=== PATIENT | female | born 1940 | race Caucasian/White ===

== ENCOUNTER → 2017-12-30 07:36 | Outpatient (CLI) | payer MEDICARE, SELFPAY ==
--- NOTE | 2017-12-30 07:42 | CT_ITS ---
STUDY: CT PELVIS WITHOUT CONTRAST REASON FOR EXAM: Female, 77 years old. Right hip osteoarthritis RADIATION DOSAGE (If Supplied By Facility): CTDIvol = ( 12.06 ) mGy, DLP = ( 395.66 ) mGycm TECHNIQUE: Transaxial imaging of the pelvis was performed with oral contrast, and without intravenous administration of contrast material. Individualized dose optimization techniques were used for this CT. COMPARISON: 07/12/2016 FINDINGS: Normal urinary bladder. Possible gallbladder distention. This is incompletely imaged. Normal visualized small intestine. Normal visualized colon. There is no pelvic fluid. A stable partially calcified ovoid mass is present in the left lower quadrant medial to the colon, measuring 5.0 x 3.3 cm on image 21 of series 2. Normal visualized pelvic arteries. Normal abdominal wall. 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 Moderate left hip osteoarthritis. 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 Moderate left hip osteoarthritis. Stable calcified mass in the left lower quadrant. Possible distended gallbladder. Electronically Signed: Gildardo Nassar MD at 7:45 EDT Tel , Service support ,
--- NOTE | 2017-12-30 07:43 | CT_ITS ---
STUDY: CT PELVIS WITHOUT CONTRAST REASON FOR EXAM: Female, 77 years old. Right hip osteoarthritis RADIATION DOSAGE (If Supplied By Facility): CTDIvol = ( 12.06 ) mGy, DLP = ( 395.66 ) mGycm TECHNIQUE: Transaxial imaging of the pelvis was performed with oral contrast, and without intravenous administration of contrast material. Individualized dose optimization techniques were used for this CT. COMPARISON: 07/12/2016 FINDINGS: Normal urinary bladder. Possible gallbladder distention. This is incompletely imaged. Normal visualized small intestine. Normal visualized colon. There is no pelvic fluid. A stable partially calcified ovoid mass is present in the left lower quadrant medial to the colon, measuring 5.0 x 3.3 cm on image 21 of series 2. Normal visualized pelvic arteries. Normal abdominal wall. 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 Moderate left hip osteoarthritis. 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 Moderate left hip osteoarthritis. Stable calcified mass in the left lower quadrant. Possible distended gallbladder. Electronically Signed: Gildardo Nassar MD at 7:45 EDT Tel , Service support ,
== END ==
PROVIDERS: Family Provider Family Medicine; PCP Family Medicine; Visit Provider Specialist
DX: M16.11 Unilateral primary osteoarthritis, right hip (principal)
CPT/HCPCS: 72192; 76377

== ENCOUNTER → 2018-05-10 05:00 | Outpatient (REF) | payer MEDICARE, SELFPAY ==
[2018-05-10 09:05] LABS: Hematocrit 37.3 % (37-47); Hemoglobin 12.1 g/dl (12.0-15.0); Mean Corp Hgb Conc 32.4 g/gl (32-36); Mean Corpuscular Hgb 29.5 pg (27.0-32.0); Mean Platelet Vol. 8.9 fl (6.2-12.0); Platelet Count 159 K/mm3 (150-450); RBC Distribution Width CV 14.2 % (11.6-14.6); RBC Distribution Width SD 46.5 fl (35.1-43.9); White Blood Count 6.6 K/mm3 (4.4-11.0)
[2018-05-10 09:18] LABS: Scan Indicated on CBC? Y/N NO
[2018-05-10 09:39] LABS: Anion Gap 6 (5-15); BUN 10 mg/dL (7-18); BUN/Creat Ratio 15.3 RATIO (10-20); Calcium,Total 9.2 mg/dL (8.5-10.1); Chloride 94 mmol/L (98-107); Cholesterol 172 mg/dL (200); Creatinine, Serum 0.65 mg/dL (0.55-1.02); EST Glomerular Filtration Rate 94 mL/min (>60); Est Glom Filt Rate - Afr Amer 114 mL/min (>60); Glucose 72 mg/dL (74-106); High Density Lipoprotein 57 mg/dL; Potassium 3.9 mmol/L (3.5-5.1); Sodium Level 129 mmol/L (136-145); Triglycerides 119 mg/dL; Very Low Density Lipoprotein 24 mg/dL (5-40)
== END ==
LOC: OLS.AVED 05:00
PROVIDERS: Visit Provider Family Medicine
DX: I10 Essential (primary) hypertension (principal); E78.5 Hyperlipidemia, unspecified; I25.10 Atherosclerotic heart disease of native coronary artery without angina pectoris
CPT/HCPCS: 36415; 80048; 80061; 85027

== ENCOUNTER 2018-05-19 07:00 | Emergency (ER) | payer MEDICARE, SELFPAY ==
[2018-05-19 07:01] VITALS: BP 125/71; PULSE 83; RESP 14; TEMP 37; O2SAT 97; BMI 16.4
--- NOTE | 2018-05-19 07:16 | RAD_ITS ---
STUDY: X-RAY - LEFT SHOULDER REASON FOR EXAM: Female, 78 years old. Entire left shoulder pain. TECHNIQUE: 4 view(s) of the shoulder. COMPARISON: No prior left shoulder imaging available. Correlation chest AP upright view 12/31/2016. FINDINGS: Complete oblique fractures noted of the left distal clavicle with elevation of the proximal portion and displacement superior impression when shaft width noted. Mild angulation is also seen apex superior and left distal clavicular fracture. Separate bony fragment measures approximately 1.7 x 2.2 cm with the distal clavicular articular margin approximate 0.68 cm and the acromioclavicular joints appears intact as does the glenohumeral joint. However, mild diffuse increased soft tissue density seen superior to the fracture site indicating soft tissues 1/hematoma. Nonacute humeral head and visualized proximal humerus. Visualized ribs and adjacent lung appear intact without large gross pneumothorax identified. Generalized osteopenia suggested. RAD/Shoulder min 2 Views IMPRESSION: Left distal clavicular acute fracture as described with displacement and angulation. No obvious dislocation identified. Generalized osteopenia. Electronically Signed: Harsha Ramírez, at 8:35 EDT Tel , Service support ,
--- NOTE | 2018-05-19 07:16 | RAD_ITS ---
STUDY: X-RAY CHEST REASON FOR EXAM: Female, 78 years old. Complete left shoulder pain after fall today. Left side pain. TECHNIQUE: 2 views, PA and lateral projections. COMPARISON: Chest 12/31/2016. FINDINGS: The lungs appear hyperexpanded and demonstrate other findings suggesting COPD with biapical hyperexpansion/hyperlucency changes. Mild suboptimal inspiration is also suggested with mild elevation right diaphragm. Hiatal hernia noted, approximate 7.8 cm transverse with small air-fluid level noted. Heart size appears mildly enlarged for AP and lateral projections. Moderate aortic knob calcifications. Trachea is right midline due to rotation which accentuates heart size. Heterogeneous opacity seen in the right lung base medially extending into the right infrahilar region, may represent atelectasis/scarring, pneumonia or lower probability pleural fluid. With lateral view, same heterogeneous area appears anterior suggesting right middle lobe involvement. Stable appearing mediastinum and left hilum. Mildly enlarged visualized pulmonary arteries suggested. Stable appearing heavily calcified visualized aortic knob. Complete oblique fracture is noted of the left distal clavicle with elevation of the proximal portion and displacement superior portion approximate 1 shaft width noted. Mild angulation is also seen apex superior and left distal clavicular fracture. Separate bony fragment is a proximal 1.7 x 2.2 cm with the distal clavicular articular margin approximate 0.68 cm from the adjacent acromion. Acromioclavicular joint appears intact as does the glenohumeral joint. However, mild diffuse increased soft tissue density is seen superior to the fracture site indicating deltoid musculature/soft tissue swelling/hematoma. Generalized osteopenia suggested. There is no demonstrated abnormality of the visualized soft tissue structures of the upper abdomen. No subdiaphragmatic free air seen grossly. RAD/Chest PA and Lateral IMPRESSION: Right lung base medial and right infrahilar heterogeneous opacity, may represent atelectasis/scarring, pneumonia or lower probability pleural fluid. Clinical correlation recommended. Left distal clavicular acute fracture as described with displacement and angulation. Moderate hiatal hernia with air-fluid level placing patient at risk for aspiration. Clinical correlation recommended. Generalized osteopenia. Electronically Signed: Harsha Ramírez, at 9:07 EDT Tel , Service support ,
--- NOTE | 2018-05-19 07:16 | CT_ITS ---
STUDY: CT BRAIN WITHOUT CONTRAST REASON FOR EXAM: Female, 78 years old. FALL RADIATION DOSAGE (If Supplied By Facility): CTDIvol = ( 44.99 ) mGy, DLP = ( 745.99 ) mGycm TECHNIQUE: Transaxial CT imaging of the brain was performed without administration of intravenous contrast material. Individualized dose optimization techniques were used for this CT. COMPARISON: None. FINDINGS: There is cerebral atrophy with widening of the extra-axial spaces and ventricular dilatation. There are areas of decreased attenuation within the white matter tracts of the supratentorial brain, consistent with microvascular disease changes. There is no intracranial hemorrhage. There are no findings of an acute ischemic infarction. Normal soft tissue structures. There is left maxillary sinus disease CT/Brain/Head without Contrast IMPRESSION: Chronic involutional changes of the brain. Electronically Signed: David Monsalve MD at 8:10 EDT Tel , Service support ,
[2018-05-19] MEDS: morphine 10 MG/ML Syringe 2 MG SC (07:28)
--- NOTE | 2018-05-19 09:14 | ED.VISSUMM ---
- ER Visit Summary Date of Service: 05/19/18 Chief Complaint: Fall History of Present Illness: The patient is a 78 F who presents from her nursing facility with a fall this morning. The patient landed on her left side. She did not hit her head or neck. She did not complain of head or neck pain. She did not lose consciousness. She does take Eliquis and aspirin. Her pain is over her left shoulder and wraps around to her left upper back. Denies abdominal pain. Denies hip or leg pain. Denies right upper extremity pain. Denies weakness or numbness. Denies vision changes. Denies speech changes or facial droop. Denies trouble with balance. Denies nausea or vomiting. Physical Examination: Afebrile and vital signs unremarkable. Head and neck are grossly atraumatic. Neck is nontender. Heart is regular. Lungs are clear. Left shoulder is tender to palpation diffusely and about the distal clavicle. Left scapular region is slightly tender to palpation. Overlying skin appears normal. She is neurovascularly intact distally. Right upper extremity atraumatic. Abdomen soft and nontender. The remainder of her back is nontender. Hips and legs unremarkable. No focal or lateralizing weakness or numbness. Cranial nerves grossly intact. Test Results: X-rays of the left shoulder showed a distal clavicle fracture with angulation. She also has incidental findings on her chest x-ray including hiatal hernia and a right lung opacity. This is nonspecific. Clinically she has no respiratory symptoms. No infectious symptoms. She can follow-up with her doctor. Head CT was negative. Emergency Department Course and Treatment: Patient treated with morphine while awaiting results. She was placed in a sling. There is no indication for operative management at this point. She has seen Dr. Garcia before and will be referred to him. I did check her prescription report. She has been on oxycodone in the past. Will prescribe a short course of Percocet. Patient will be discharged back to her nursing facility. She should also follow-up with her primary care doctor for recheck. Return for any new or worsening issues. Treatment Plan: As above Disposition: Discharged Impression: 1. Left distal clavicle fracture This note was generated with [employer] dictation software. It may contain incorrect words, spelling, and punctuation that were not noted in review of the chart prior to signing ED Disposition - Plan for ED Patient: Chief Complaint: Fall Referrals: Agueda Colón DO [Primary Care Provider] -
--- NOTE | 2018-05-19 09:20 | ED.DEP ---
ED Disposition - Plan for ED Patient: Chief Complaint: Fall Instructions: ED Fx Clavicle Prescriptions: Oxycodone [Oxyir] 5 mg PO Q6H PRN PRN 3 Days #12 tab PRN Reason: Pain Oxycodone HCl/Acetaminophen [Percocet 5/325] 1 tablet PO Q6H PRN PRN 3 Days #12 tablet PRN Reason: Pain Referrals: Agueda Colón DO [Primary Care Provider] -
[2018-05-19 09:40] VITALS: BP 122/69; PULSE 79; RESP 12; O2SAT 93
[2018-05-19 09:41] VITALS: BP 122/69; PULSE 74; RESP 12; O2SAT 93
== END 2018-05-19 11:22 | disposition home or self-care (01) ==
PROVIDERS: Emergency Provider Emergency Medicine; Family Provider Family Medicine; PCP Family Medicine
DX: S42.032A Displaced fracture of lateral end of left clavicle, initial encounter for closed fracture (principal); I25.10 Atherosclerotic heart disease of native coronary artery without angina pectoris; I48.91 Unspecified atrial fibrillation; I10 Essential (primary) hypertension; Z86.2 Personal history of diseases of the blood and blood-forming organs and certain disorders involving the immune mechanism; Z79.01 Long term (current) use of anticoagulants; Z79.82 Long term (current) use of aspirin; Z79.891 Long term (current) use of opiate analgesic; Z79.899 Other long term (current) drug therapy
CPT/HCPCS: 70450; 71046; 73030; 96372; 99284

== ENCOUNTER → 2018-05-22 06:00 | Outpatient (REF) | payer MEDICARE, SELFPAY ==
[2018-05-22 10:24] LABS: Vitamin D,25 Hydroxy 73.9 ng/mL (29.95-100.01)
== END ==
LOC: OLS.AVEB 06:00
PROVIDERS: Visit Provider Family Medicine
DX: E55.9 Vitamin D deficiency, unspecified (principal)
CPT/HCPCS: 36415; 82306

== ENCOUNTER → 2018-06-01 08:20 | Outpatient (REF) | payer MEDICARE, SELFPAY ==
[2018-06-01 09:37] LABS: Prealbumin 7.1 mg/dL (20.0-40.0)
[2018-06-02 09:07] LABS: Vitamin D,25 Hydroxy 70.3 ng/mL (29.95-100.01)
== END ==
LOC: OLS.AVED 08:20
PROVIDERS: Visit Provider Family Medicine
DX: R63.4 Abnormal weight loss (principal); F25.9 Schizoaffective disorder, unspecified
CPT/HCPCS: 36415; 82306; 84134; 84443

== ENCOUNTER → 2018-06-05 04:00 | Outpatient (REF) | payer MEDICARE, SELFPAY ==
[2018-06-05 08:15] LABS: Hematocrit 30.3 % (37-47); Hemoglobin 9.8 g/dl (12.0-15.0); Mean Corp Hgb Conc 32.3 g/gl (32-36); Mean Corpuscular Hgb 30.2 pg (27.0-32.0); Mean Corpuscular Volume 93.2 fL (81-99); Mean Platelet Vol. 8.7 fl (6.2-12.0); Platelet Count 217 K/mm3 (150-450); RBC Distribution Width SD 49.3 fl (35.1-43.9); Red Blood Count 3.25 M/mm3 (4.2-5.4); White Blood Count 6.5 K/mm3 (4.4-11.0)
[2018-06-05 08:18] LABS: Scan Indicated on CBC? Y/N NO
[2018-06-05 08:23] LABS: Anion Gap 10 (5-15); BUN 11 mg/dL (7-18); BUN/Creat Ratio 14.6 RATIO (10-20); Calcium,Total 8.6 mg/dL (8.5-10.1); Chloride 100 mmol/L (98-107); Creatinine, Serum 0.75 mg/dL (0.55-1.02); EST Glomerular Filtration Rate 79 mL/min (>60); Est Glom Filt Rate - Afr Amer 96 mL/min (>60); Glucose 85 mg/dL (74-106); Potassium 4.5 mmol/L (3.5-5.1); Sodium Level 136 mmol/L (136-145)
== END ==
LOC: OLS.AVED 04:00
PROVIDERS: Visit Provider Family Medicine
DX: D64.9 Anemia, unspecified (principal)
CPT/HCPCS: 36415; 80048; 85027

== ENCOUNTER 2018-06-30 16:35 | Emergency (ER) | payer MEDICARE, SELFPAY ==
[2018-06-30 16:37] VITALS: BP 107/75; PULSE 61; RESP 14; TEMP 36.6; O2SAT 98; BMI 19.1
--- NOTE | 2018-06-30 17:16 | EKG12_ITS ---
Test Reason : DYSRHYTHMIA Blood Pressure : / mmHG Vent. Rate : 096 BPM Atrial Rate : 096 BPM P-R Int : 162 ms QRS Dur : 122 ms QT Int : 410 ms P-R-T Axes : 071 -22 -89 degrees QTc Int : 517 ms Sinus rhythm with Premature atrial complexes Right bundle branch block Left ventricular hypertrophy Abnormal ECG Confirmed by JIA CULP, DIMA ([id number]), rewrite editor NEREIDA DALEY ([id number] on 07/07/2018 1:29:01 PM Referred By: FILOMENA Confirmed By:DIMA RO MD
--- NOTE | 2018-06-30 17:21 | ED.VISSUMM ---
- ER Visit Summary Date of Service: 06/30/18 Chief Complaint: Weakness History of Present Illness: The patient is a 78 F sent in from [facility] for failure to thrive and not eating over the past couple days. Patient has no complaints and does not know why she is here. She does admit that she has not been eating well and states she really just has no appetite. Per records patient's history is significant for dementia, coronary disease, hypertension, sick sinus syndrome, hyponatremia, paroxysmal A. fib, chronic hip pain. Physical Examination: Vital signs are unremarkable. Patient is frail and cachectic appearing. Head neck examination is grossly unremarkable. Heart is regular rate and rhythm. Lung sounds are clear. Abdomen is soft nontender. Back examination with a 3 cm diameter sacral pressure ulcer with packing in place. There is minimal surrounding erythema. Patient is alert and oriented. She is moving all 4 extremities. Test Results: EKG is sinus at 96 with PACs and a right bundle branch block. No acute ischemia. CBC reveals a white count 26.6 with 92% neutrophils. Hemoglobin is 10.5. Chemistry studies significant for slightly low potassium at 3.2. Urinalysis shows 50 ketones but no infection. Aerobic and anaerobic cultures were sent from the sacral ulcer. Emergency Department Course and Treatment: Patient was ordered Zosyn and vancomycin. I spoke with the hospitalist. When she spoke to the patient's son he states the patient is a DNR comfort care and after discussing treatment options they are electing for hospice care if possible. I spoke with the hospice nurse and they are evaluating the patient in the emergency room. They have accepted the patient and patient will be discharged to the hospice center. Treatment Plan: [] Disposition: Discharge Impression: 1. Infected sacral decubitus ulcer 2. DNR Comfort Care This note was generated with [employer] dictation software. It may contain incorrect words, spelling, and punctuation that were not noted in review of the chart prior to signing ED Disposition - Plan for ED Patient: Chief Complaint: Weakness Referrals: Agueda Colón DO [Primary Care Provider] -
[2018-06-30] MEDS: 0.9% Normal Saline 1,000 ML 50 ML IV (18:13)
[2018-06-30 18:26] LABS: Absolute Lymphocyte Count 0.96 X10^3/ul (0.83-4.51); Absolute Neutrophil Count 24.5 X10^3/uL (2.0-7.7); Basophil# 0.01 X10^3/uL; Hematocrit 32.5 % (37-47); Hemoglobin 10.5 g/dl (12.0-15.0); Lymphocyte # 0.96 X10^3/ul (4.0); Lymphocyte % 3.6 % (19-41); Mean Corp Hgb Conc 32.3 g/gl (32-36); Mean Corpuscular Volume 89.8 fL (81-99); Mean Platelet Vol. 8.2 fl (6.2-12.0); Monocyte# 0.94 X10^3/uL; Monocyte% 3.5 % (0-10); Neutrophil # 24.54 X10^3/uL (2.7-7.7); Neutrophil % 92.5 % (47-70); Platelet Count 265 K/mm3 (150-450); Red Blood Count 3.62 M/mm3 (4.2-5.4); White Blood Count 26.6 K/mm3 (4.4-11.0)
[2018-06-30 18:33] LABS: Differential Indicated SCAN CRITERIA MET; POSITIVE COUNT NO; POSITIVE DIFFERENTIAL YES; POSITIVE MORPHOLOGY NO
[2018-06-30 18:34] LABS: Anion Gap 9 (5-15); BUN 24 mg/dL (7-18); BUN/Creat Ratio 39.9 RATIO (10-20); Calcium,Total 9.2 mg/dL (8.5-10.1); Chloride 100 mmol/L (98-107); EST Glomerular Filtration Rate 103 mL/min (>60); Est Glom Filt Rate - Afr Amer 124 mL/min (>60); Estimated Creatinine Clearance 33.59 ml/min; Glucose 106 mg/dL (74-106); Potassium 3.2 mmol/L (3.5-5.1); Sodium Level 138 mmol/L (136-145)
[2018-06-30 18:52] LABS: Bacteria 0 SEEN /hpf (None Seen); Squamous Epithelial Cells - UA 0 SEEN /hpf (5-10)
[2018-06-30 18:52] LABS: Differential Comment SCANNED
[2018-06-30 18:56] LABS: Color, Urine Yellow (Yellow); Glucose, Dipstick Normal (Normal); Ketone-Dipstick 50 mg/dl (Negative); Leukocyte Esterase-Dipstick Negative /ul (Negative); Nitrite-Dipstick Negative (Negative); Occult Blood-Urine Negative /ul (Negative); Protein-Dipstick 15 mg/dl (Negative); Urine Clarity Clear (Clear); Urine Urobilinogen 1 mg/dl (Normal)
[2018-06-30 19:03] LABS: Urine Bilirubin Dipstick 1 mg/dL (Negative)
[2018-06-30 19:04] LABS: Mucous, Urine 1+ /hpf (<or=2+)
[2018-06-30 19:05] LABS: Hyaline Cast 0-5 SEEN /lpf (0-5)
[2018-06-30 19:06] LABS: White Blood Cells 0-5 SEEN /hpf (0-5)
[2018-06-30 19:08] LABS: Transitional Epithelial - Ur 0-5 SEEN /hpf (0-5)
[2018-06-30 19:11] LABS: Red Blood Cells-Urine 0-5 SEEN /hpf (0-5)
[2018-06-30] MEDS: Piperacil/Tazobactam 3.375 GM/50 ML ML IV (19:30)
--- NOTE | 2018-06-30 20:53 | PCM.CONS.GEN ---
Problem List (1) Decubitus ulcer of coccygeal region, stage 4 Status: Acute (2) Protein-calorie malnutrition, severe Status: Chronic (3) Depression Status: Chronic Qualifiers: Depression Type: unspecified Qualified Code(s): F32.9 - Major depressive disorder, single episode, unspecified (4) Generalized anxiety disorder Status: Chronic (5) Osteoarthritis of hip Status: Chronic Qualifiers: Osteoarthritis type: unspecified Laterality: unspecified laterality Qualified Code(s): M16.9 - Osteoarthritis of hip, unspecified (6) Paroxysmal atrial fibrillation Status: Chronic (7) CAD (coronary artery disease) Status: Chronic Qualifiers: Coronary Disease-Associated Artery/Lesion type: unspecified vessel or lesion type [place] vs. transplanted heart: unspecified whether [place] or transplanted heart Associated angina: angina presence unspecified Qualified Code(s): I25.10 - Atherosclerotic heart disease of [place] coronary artery without angina pectoris (8) HTN (hypertension) Status: Chronic Qualifiers: Hypertension type: essential hypertension Qualified Code(s): I10 - Essential (primary) hypertension (9) Hyponatremia Status: Chronic Comment: due to excessive water intake (10) Sick sinus syndrome Status: Chronic (11) Hyperlipidemia Status: Chronic (12) Mitral valve disease Status: Chronic (13) Tricuspid valve disease Status: Chronic (14) Migraine Status: Chronic Qualifiers: Migraine type: unspecified Status migrainosus presence: without status migrainosus Intractability: not intractable Qualified Code(s): G43.909 - Migraine, unspecified, not intractable, without status migrainosus Reason for Consult Date of Consultation: 06/30/18 Reason for Consultation: Failure to thrive, suspected infected coccxy decubitous ulcer, poor intake. History of Present Illness: The patient is a 78 y/o F w/ PMHx: PUD, Dementia Unclear Type with no behavioral disturbance history, Severe Protein-Calorie Malnutrition, PAF on Eliquis, Hx Sick Sinus Syndrome, HTN, HLD, Chronic Hyponatremia, Valvular Heart Disease, Anxiety and Depression, Chronic Fe deficiency anemia, CAD without PCI from records review who presents to the [facility] ED on 06/30/18 with history of poor intake, failure to thrive per facility worsening over the last 48-72 hours w/ concurrently noted ongoing wound care for coccyx decubitous ulcer which family reported facility noting had been improving and well appearing prior but upon current presentation is foul smelling w/ obvious muscle necrosis upon evaluation with concern for > stage IV. In the ED work-up included T 97.9, heart rate 61, BP 107/75, respiratory rate 14, 98% on room air, CBC with WBC 26.6, hemoglobin 10.5, platelet 265 with left shift, BMP with potassium 3.2, BUN/creatinine 24/0.60, urinalysis with evidence dehydration with specific gravity 1.020 otherwise no evidence of acute infection, EKG with no acute evidence of ischemia. In the ED patient administered Zosyn in addition to normal saline with planned administration of vancomycin however following discussion with family, son who is healthcare power of senior portfolio manager noting DNR CC with comfort only with request for evaluation per hospice services this antibiotic was held. Past Medical History Past Medical History (Chronic Problems): Chronic Problems Protein-calorie malnutrition, severe (Chronic) Anemia due to unknown mechanism (Chronic) Depression (Chronic) Generalized anxiety disorder (Chronic) Osteoarthritis of hip (Chronic) Paroxysmal atrial fibrillation (Chronic) CAD (coronary artery disease) (Chronic) Fatty infiltration of liver (Chronic) HTN (hypertension) (Chronic) Villous adenoma of colon (Chronic) Presbyesophagus (Chronic) Hyponatremia (Chronic) due to excessive water intake Sick sinus syndrome (Chronic) Hyperlipidemia (Chronic) Mitral valve disease (Chronic) Tricuspid valve disease (Chronic) Osteoarthritis of right hip (Chronic) Migraine (Chronic) Allergies moxifloxacin HCl [From Avelox] Allergy (Verified 06/30/18 16:37) Hives acetaminophen [From Percocet] Adverse Reaction (Verified 06/30/18 16:37) Vomiting hydrocodone bitartrate [From Vicodin] Adverse Reaction (Verified 06/30/18 16:37) Vomiting hydromorphone HCl [From Dilaudid] Adverse Reaction (Verified 06/30/18 16:37) Vomiting Steriods Adverse Reaction (Uncoded 06/30/18 16:37) Diarrhea Home Medications: Ambulatory Orders Medication Instructions Recorded Omeprazole [Prilosec] 20 mg PO BID #60 capsule 04/30/16 Amlodipine [Norvasc] 10 mg PO DAILY tablet 05/04/17 Aspirin [Aspirin, Baby] 81 mg PO DAILY@0800 tab.chew 05/04/17 Losartan Potassium [Cozaar] 100 mg PO DAILY tablet 05/04/17 Acetaminophen [Feverall] 650 mg RC Q4H PRN PRN 05/19/18 Acetaminophen [Tylenol] 650 mg PO Q4H PRN PRN 05/19/18 Apixaban [Eliquis] 2.5 mg PO DAILY 05/19/18 Atorvastatin Calcium [Lipitor] 20 mg PO QHS 05/19/18 Bisacodyl [Bisac-Evac] 10 mg RC DAILY PRN PRN 05/19/18 Calcium Carbonate [Tums] 1 - 2 tab PO Q4H PRN PRN 05/19/18 Ergocalciferol (Vitamin D2) 2,000 unit PO DAILY 05/19/18 [Ergocal] Guaifenesin [Mucinex] 600 mg PO BID PRN PRN 05/19/18 Guaifenesin [Robitussin] 10 ml PO Q4H PRN PRN 05/19/18 Loperamide HCl [Loperamide] 30 ml PO DAILY PRN PRN 05/19/18 Mag Hydrox/Al Hydrox/Simeth 30 ml PO Q4H PRN PRN 05/19/18 [Antacid Suspension] Magnesium Hydroxide [Milk Of 30 ml PO DAILY PRN PRN 05/19/18 Magnesia] Mirtazapine [Remeron] 7.5 mg PO QHS 05/19/18 Multivitamin [Multiple Vitamins] 1 each PO DAILY 05/19/18 Na Phos,M-B/Na Phos,Di-Ba [Fleet 1 bottle RECTAL DAILY PRN PRN 05/19/18 Enema] Oxycodone [Oxyir] 5 mg PO BID 05/19/18 Oxycodone [Oxyir] 5 mg PO Q6H PRN PRN 05/19/18 Quetiapine Fumarate [Seroquel] 50 mg PO BID 05/19/18 Cetirizine HCl [Zyrtec] 10 mg PO DAILY 06/30/18 Sotalol HCl [Betapace (Beta 120 mg PO BID 06/30/18 Luis Enrique)] Surgical History: tonsillectomy, - - Cardiac catheterization without PCI, Several Endoscopies, Abdominal mass resection. Psychiatric History: Anxiety, Depression CIGARETTE PACKER History: No pertinent CIGARETTE PACKER history Lives: Skilled Nursing Smoking Status: Never smoker Tobacco Use: Non-smoker Alcohol: None Drugs: None - *Family History Sibling History Items: Cancer - breath cancer. Maternal History Items: Cancer - cervical cancer, Hypertension Paternal History Items: No pertinent history Review of Systems Constitutional: Reports: Anorexia, Malaise, Weakness, Fatigue. Denies: Chills, Fever, Weight Change HEENT: Denies: Head Aches, Sinus Congestion, Sinus Drainage Cardiovascular: Denies: Chest Pain, Palpitations Respiratory: Denies: Cough, Shortness of breath at rest, Sputum production Gastrointestinal: Denies: Abdominal Pain, Nausea, Vomiting Genitourinary: Denies: Dysuria Musculoskeletal: Reports: Back Pain, Joint stiffness. Denies: Joint Pain, Joint Tenderness Skin: Reports: Skin Changes, Wounds. Denies: Rash Neurological: Reports: Confusion. Denies: Focal weakness, Numbness, Tingling Psychiatric: Reports: Anxiety, Depression. Denies: Homicidal Ideations, Suicidal Ideations Hematologic/ Lymphatic: Reports: Anemia, Easy Bruising, Easy Bleeding Patient Problems: Active and Suspected Problems Decubitus ulcer of coccygeal region, stage 4 (Acute) Subjective: Laying in the ED bed, fatigued appearance, currently she denies any acute complaints, notes recent poor intake but cannot tell why. She denies any coccyx pain or discomfort but moans upon turning. Objective: Physical Examination: General: awake, alert, oriented to self and some recent events but baseline chronic dementia evidence, cooperative, laying in the ED bed in no apparent distress. Skin: normal color, turgor, no icterus, cyanosis except occasional extremity various staged ecchymoses in addition to posterior coccyx greater than stage IV coccyx decubitus ulcer, infected appearing, foul-smelling, necrotic tissue and muscle evident. HEENT: AT/NC, EOMI, PERRLA, dry MM, no carotid bruits or JVD noted. Lungs: Diminished BS BL, > bases, poor effort, performed on her side, no rales, ronchi or wheezing. Heart: Regular rate and rhythm; no gallop, rub audible. Abdomen: soft, extremely cachectic, NTTP, ND, mildly hypoactive BS, no HSM. Extremities: no cyanosis, clubbing, see skin. Neurological: patient awake, alert, oriented as noted; cognitive function decreased baseline w/ dementia, appears baseline intact; pupils equally reactive to light and accomodation; cranial nerves II-XII grossly normal, moving all 4 extremities, no focal deficits, strength severely globally decreased. Psychiatric: affect appears flat, fatigued, no acute evidence of depressive or anxiety feelings. - Physical Exam Vital Signs Temp Pulse Resp BP Pulse Ox 97.9 F 61 14 107/75 98 06/30/18 16:37 06/30/18 16:37 06/30/18 16:37 06/30/18 16:37 06/30/18 16:37 Oxygen Delivery Method Room Air Weight: 98 lb Body Mass Index (BMI) 19.1 Finger Stick Blood Glucose 76 Laboratory Tests Past 24 Hrs 06/30/18 06/30/18 06/30/18 18:05 18:05 18:45 WBC 26.6 H RBC 3.62 L Hgb 10.5 L Hct 32.5 L MCV 89.8 MCH 29.0 MCHC 32.3 RDW 15.0 H RDW Differential 49.0 H Plt Count 265 MPV 8.2 Immature Gran % (Auto) 0.400 Neut % (Auto) 92.5 H Lymph % (Auto) 3.6 L [place] % (Auto) 3.5 Eos % (Auto) 0.0 Baso % (Auto) 0.0 Absolute Neuts (auto) 24.5 H Absolute Lymphs (auto) 0.96 Total Counted Not Reportable Differential Comment SCANNED Sodium 138 Potassium 3.2 L Chloride 100 Carbon Dioxide 29.0 Anion Gap 9 BUN 24 H Creatinine 0.60 Estim Creat Clear Calc 33.59 Est GFR (MDRD) Af Amer 124 Est GFR (MDRD) Non-Af 103 BUN/Creatinine Ratio 39.9 H Glucose 106 Calcium 9.2 Urine Color Yellow Urine Clarity Clear Urine pH 6.0 Ur Specific [place] 1.020 Urine Protein 15 H Urine Glucose (UA) Normal Urine Ketones 50 H Urine Occult Blood Negative Urine Nitrite Negative Urine Bilirubin 1 H Urine Urobilinogen 1 H Ur Leukocyte Esterase Negative Urine RBC 0-5 SEEN Urine WBC 0-5 SEEN Ur Squamous Epith Cells 0 SEEN Ur Transition Epith Cell 0-5 SEEN Urine Bacteria 0 SEEN Hyaline Casts 0-5 SEEN Urine Mucus 1+ Assessment/Plan All Active Problems Decubitus ulcer of coccygeal region, stage 4 (Acute) Altered mental status (Acute) UTI (urinary tract infection) (Acute) Abdominal pain (Acute) Abnormal LFTs (Resolved) Hypertensive emergency without congestive heart failure (Resolved) Peptic ulcer with hemorrhage (Resolved) Sinus pause (Resolved) The patient is a 78 y/o F w/ PMHx: PUD, Dementia Unclear Type with no behavioral disturbance history, Severe Protein-Calorie Malnutrition, PAF on Eliquis, Hx Sick Sinus Syndrome, HTN, HLD, Chronic Hyponatremia, Valvular Heart Disease, Anxiety and Depression, Chronic Fe deficiency anemia, CAD without PCI from records review who presents to the [facility] ED on 06/30/18 with history of poor intake, failure to thrive per facility worsening over the last 48-72 hours w/ concurrently noted ongoing wound care for coccyx decubitous ulcer which family reported facility noting had been improving and well appearing prior but upon current presentation is foul smelling w/ obvious muscle necrosis upon evaluation with concern for > stage IV. (1) Hospice: Patient verified per HCPOA Son present to be DNR-CC. Reviewed patient code status and differences at length between DNR-CCA and DNR-CC. Requested continued DNR-CC. Discussed different options including evaluation per Hospice team in ED for possible transition to facility which he noted preferring. Will be evaluated in the ED and if felt appropriate transition to Hospice facility. Otherwise, would admit to [facility] for hospice treatment, MS, institute hospice comfort measures w/ VS limited q 12, sanderson placement if preference to patient and care, mouth care, regular diet or patient preference, oxygen as needed, PRN and scheduled SL morphine, scheduled lorazepam, haldol PRN IV, tylenol PRN. (2) Infected Decubitous Coccyx Ulcer, Suspect > Stage IV: In the ED work-up included T 97.9, heart rate 61, BP 107/75, respiratory rate 14, 98% on room air, CBC with WBC 26.6, hemoglobin 10.5, platelet 265 with left shift, BMP with potassium 3.2, BUN/creatinine 24/0.60, urinalysis with evidence dehydration with specific gravity 1.020 otherwise no evidence of acute infection, EKG with no acute evidence of ischemia. In the ED patient administered Zosyn in addition to normal saline with planned administration of vancomycin however following discussion with family, son who is healthcare power of senior portfolio manager noting DNR CC with comfort only with request for evaluation per hospice services this antibiotic was held. If patient evaluation per Hospice does not yield transition to Hospice facility would plan admission to [facility] for comfort measures if appropriate. Additional Comorbidities: PAF: Maintained prior on eliquis and sotaolol, would plan hold given Hospice, comfort transition per HCPOA. Hypertension: Low BP in the ED, continued gentle hydration, would plan hold on regimen given Hospice, comfort transition per HCPOA. Hyperlipidemia: Hold home statin regimen. Chronic Hyponatremia: Na not marked elevated upon current presentation, prior records indicate routine Na mid 120-low 130 range, from prior reports secondary to excessive intake w/ fluid restrictions prior, current presentation w/ poor intake yielding elevated level. Severe Protein-Calorie Malnutrition: Evidenced per BMI, habitus, muscle and fat loss evidence very cachetic appearing. Hospice transition. Valvular Heart Disease: 2014 ECHO w/ EF 65%, stage I diastolic dysfunction, RVSP 31 mmHg with no changes from echo dated 2012; however, 2017 note per Cardiology commenting on ECHO w/ EF 70%, RVSP 26 mmHg and mild aortic insufficiency. Anxiety and Depression: Previous records indicate treatment w/ q HS low dose seroquel and currently remeron q HS. If anxious with current presentation given comfort transition, PRN SL ativan may be an option. CAD: From records no PCI, but unclear, would plan hold on regimen given Hospice, comfort transition per HCPOA. Chronic Fe Deficiency Anemia: Chronic anemia for several years, prior unremarkable endoscopies, has been maintained on eliquis but as noted stopping per discussion w/ HCPOA given Hospice transition. PUD: PPI if patient preference. DVT Prophylaxis: Defer given Hospice transition. CODE status: Discussed CODE status at length including difference between FULL code, DNR-CCA and DNR-CC status. Following discussions about the differences in these status, requested continued DNR-CC status with no interventions aside comfort measures. STEVEN is her son who was present and discussed these aspects at length. Advanced Care Planning Face to Face Time: 25 minutes. Code Visit Office Visits / Consults: [id number] IP Consult L5 - ED consultation actual CODE: [id number] Procedures: [id number] Advncd Care Plan 30 Min
--- NOTE | 2018-06-30 21:12 | CON.PCM_ITS ---
Problem List (1) Decubitus ulcer of coccygeal region, stage 4 Status: Acute (2) Protein-calorie malnutrition, severe Status: Chronic (3) Depression Status: Chronic Qualifiers: Depression Type: unspecified Qualified Code(s): F32.9 - Major depressive disorder, single episode, unspecified (4) Generalized anxiety disorder Status: Chronic (5) Osteoarthritis of hip Status: Chronic Qualifiers: Osteoarthritis type: unspecified Laterality: unspecified laterality Qualified Code(s): M16.9 - Osteoarthritis of hip, unspecified (6) Paroxysmal atrial fibrillation Status: Chronic (7) CAD (coronary artery disease) Status: Chronic Qualifiers: Coronary Disease-Associated Artery/Lesion type: unspecified vessel or lesion type [place] vs. transplanted heart: unspecified whether [place] or transplanted heart Associated angina: angina presence unspecified Qualified Code(s): I25.10 - Atherosclerotic heart disease of [place] coronary artery without angina pectoris (8) HTN (hypertension) Status: Chronic Qualifiers: Hypertension type: essential hypertension Qualified Code(s): I10 - Essential (primary) hypertension (9) Hyponatremia Status: Chronic Comment: due to excessive water intake (10) Sick sinus syndrome Status: Chronic (11) Hyperlipidemia Status: Chronic (12) Mitral valve disease Status: Chronic (13) Tricuspid valve disease Status: Chronic (14) Migraine Status: Chronic Qualifiers: Migraine type: unspecified Status migrainosus presence: without status migrainosus Intractability: not intractable Qualified Code(s): G43.909 - Migraine, unspecified, not intractable, without status migrainosus Reason for Consult Date of Consultation: 06/30/18 Reason for Consultation: Failure to thrive, suspected infected coccxy decubitous ulcer, poor intake. History of Present Illness: The patient is a 78 y/o F w/ PMHx: PUD, Dementia Unclear Type with no behavioral disturbance history, Severe Protein-Calorie Malnutrition, PAF on Eliquis, Hx Sick Sinus Syndrome, HTN, HLD, Chronic Hyponatremia, Valvular Heart Disease, Anxiety and Depression, Chronic Fe deficiency anemia, CAD without PCI from records review who presents to the [facility] ED on 06/30/18 with history of poor intake, failure to thrive per facility worsening over the last 48-72 hours w/ concurrently noted ongoing wound care for coccyx decubitous ulcer which family reported facility noting had been improving and well appearing prior but upon current presentation is foul smelling w/ obvious muscle necrosis upon evaluation with concern for > stage IV. In the ED work-up included T 97.9, heart rate 61, BP 107/75, respiratory rate 14, 98% on room air, CBC with WBC 26.6, hemoglobin 10.5, platelet 265 with left shift, BMP with potassium 3.2, BUN /creatinine 24/0.60, urinalysis with evidence dehydration with specific gravity 1.020 otherwise no evidence of acute infection, EKG with no acute evidence of ischemia. In the ED patient administered Zosyn in addition to normal saline with planned administration of vancomycin however following discussion with family, son who is healthcare power of admitted attorneys noting DNR CC with comfort only with request for evaluation per hospice services this antibiotic was held. Past Medical History Past Medical History (Chronic Problems): Chronic Problems Protein-calorie malnutrition, severe (Chronic) Anemia due to unknown mechanism (Chronic) Depression (Chronic) Generalized anxiety disorder (Chronic) Osteoarthritis of hip (Chronic) Paroxysmal atrial fibrillation (Chronic) CAD (coronary artery disease) (Chronic) Fatty infiltration of liver (Chronic) HTN (hypertension) (Chronic) Villous adenoma of colon (Chronic) Presbyesophagus (Chronic) Hyponatremia (Chronic) due to excessive water intake Sick sinus syndrome (Chronic) Hyperlipidemia (Chronic) Mitral valve disease (Chronic) Tricuspid valve disease (Chronic) Osteoarthritis of right hip (Chronic) Migraine (Chronic) Allergies moxifloxacin HCl [From Avelox] Allergy (Verified 06/30/18 16:37) Hives acetaminophen [From Percocet] Adverse Reaction (Verified 06/30/18 16:37) Vomiting hydrocodone bitartrate [From Vicodin] Adverse Reaction (Verified 06/30/18 16:37) Vomiting hydromorphone HCl [From Dilaudid] Adverse Reaction (Verified 06/30/18 16:37) Vomiting Steriods Adverse Reaction (Uncoded 06/30/18 16:37) Diarrhea Home Medications: Ambulatory Orders Medication Instructions Recorded Omeprazole [Prilosec] 20 mg PO BID #60 capsule 04/30/16 Amlodipine [Norvasc] 10 mg PO DAILY tablet 05/04/17 Aspirin [Aspirin, Baby] 81 mg PO DAILY@0800 tab.chew 05/04/17 Losartan Potassium [Cozaar] 100 mg PO DAILY tablet 05/04/17 Acetaminophen [Feverall] 650 mg RC Q4H PRN PRN 05/19/18 Acetaminophen [Tylenol] 650 mg PO Q4H PRN PRN 05/19/18 Apixaban [Eliquis] 2.5 mg PO DAILY 05/19/18 Atorvastatin Calcium [Lipitor] 20 mg PO QHS 05/19/18 Bisacodyl [Bisac-Evac] 10 mg RC DAILY PRN PRN 05/19/18 Calcium Carbonate [Tums] 1 - 2 tab PO Q4H PRN PRN 05/19/18 Ergocalciferol (Vitamin D2) 2,000 unit PO DAILY 05/19/18 [Ergocal] Guaifenesin [Mucinex] 600 mg PO BID PRN PRN 05/19/18 Guaifenesin [Robitussin] 10 ml PO Q4H PRN PRN 05/19/18 Loperamide HCl [Loperamide] 30 ml PO DAILY PRN PRN 05/19/18 Mag Hydrox/Al Hydrox/Simeth 30 ml PO Q4H PRN PRN 05/19/18 [Antacid Suspension] Magnesium Hydroxide [Milk Of 30 ml PO DAILY PRN PRN 05/19/18 Magnesia] Mirtazapine [Remeron] 7.5 mg PO QHS 05/19/18 Multivitamin [Multiple Vitamins] 1 each PO DAILY 05/19/18 Na Phos,M-B/Na Phos,Di-Ba [Fleet 1 bottle RECTAL DAILY PRN PRN 05/19/18 Enema] Oxycodone [Oxyir] 5 mg PO BID 05/19/18 Oxycodone [Oxyir] 5 mg PO Q6H PRN PRN 05/19/18 Quetiapine Fumarate [Seroquel] 50 mg PO BID 05/19/18 Cetirizine HCl [Zyrtec] 10 mg PO DAILY 06/30/18 Sotalol HCl [Betapace (Beta 120 mg PO BID 06/30/18 Luis Enrique)] Surgical History: tonsillectomy, - - Cardiac catheterization without PCI, Several Endoscopies, Abdominal mass resection. 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 Maternal History Items: Cancer - cervical cancer, Hypertension Paternal History Items: No pertinent history Review of Systems Constitutional: Reports: Anorexia, Malaise, Weakness, Fatigue. Denies: Chills, Fever, Weight Change HEENT: Denies: Head Aches, Sinus Congestion, Sinus Drainage Cardiovascular: Denies: Chest Pain, Palpitations Respiratory: Denies: Cough, Shortness of breath at rest, Sputum production Gastrointestinal: Denies: Abdominal Pain, Nausea, Vomiting Genitourinary: Denies: Dysuria Musculoskeletal: Reports: Back Pain, Joint stiffness. Denies: Joint Pain, Joint Tenderness Skin: Reports: Skin Changes, Wounds. Denies: Rash Neurological: Reports: Confusion. Denies: Focal weakness, Numbness, Tingling Psychiatric: Reports: Anxiety, Depression. Denies: Homicidal Ideations, Suicidal Ideations Hematologic/ Lymphatic: Reports: Anemia, Easy Bruising, Easy Bleeding Patient Problems: Active and Suspected Problems Decubitus ulcer of coccygeal region, stage 4 (Acute) Subjective: Laying in the ED bed, fatigued appearance, currently she denies any acute complaints, notes recent poor intake but cannot tell why. She denies any coccyx pain or discomfort but moans upon turning. Objective: Physical Examination: General: awake, alert, oriented to self and some recent events but baseline chronic dementia evidence, cooperative, laying in the ED bed in no apparent distress. Skin: normal color, turgor, no icterus, cyanosis except occasional extremity various staged ecchymoses in addition to posterior coccyx greater than stage IV coccyx decubitus ulcer, infected appearing, foul-smelling, necrotic tissue and muscle evident. HEENT: AT/NC, EOMI, PERRLA, dry MM, no carotid bruits or JVD noted. Lungs: Diminished BS BL, > bases, poor effort, performed on her side, no rales, ronchi or wheezing. Heart: Regular rate and rhythm; no gallop, rub audible. Abdomen: soft, extremely cachectic, NTTP, ND, mildly hypoactive BS, no HSM. Extremities: no cyanosis, clubbing, see skin. Neurological: patient awake, alert, oriented as noted; cognitive function decreased baseline w/ dementia, appears baseline intact; pupils equally reactive to light and accomodation; cranial nerves II-XII grossly normal, moving all 4 extremities, no focal deficits, strength severely globally decreased. Psychiatric: affect appears flat, fatigued, no acute evidence of depressive or anxiety feelings. - Physical Exam Vital Signs Temp Pulse Resp BP Pulse Ox 97.9 F 61 14 107/75 98 06/30/18 16:37 06/30/18 16:37 06/30/18 16:37 06/30/18 16:37 06/30/18 16:37 Oxygen Delivery Method Room Air Weight: 98 lb Body Mass Index (BMI) 19.1 Finger Stick Blood Glucose 76 Laboratory Tests Past 24 Hrs 06/30/18 06/30/18 06/30/18 18:05 18:05 18:45 WBC 26.6 H RBC 3.62 L Hgb 10.5 L Hct 32.5 L MCV 89.8 MCH 29.0 MCHC 32.3 RDW 15.0 H RDW Differential 49.0 H Plt Count 265 MPV 8.2 Immature Gran % (Auto) 0.400 Neut % (Auto) 92.5 H Lymph % (Auto) 3.6 L [place] % (Auto) 3.5 Eos % (Auto) 0.0 Baso % (Auto) 0.0 Absolute Neuts (auto) 24.5 H Absolute Lymphs (auto) 0.96 Total Counted Not Reportable Differential Comment SCANNED Sodium 138 Potassium 3.2 L Chloride 100 Carbon Dioxide 29.0 Anion Gap 9 BUN 24 H Creatinine 0.60 Estim Creat Clear Calc 33.59 Est GFR (MDRD) Af Amer 124 Est GFR (MDRD) Non-Af 103 BUN/Creatinine Ratio 39.9 H Glucose 106 Calcium 9.2 Urine Color Yellow Urine Clarity Clear Urine pH 6.0 Ur Specific [place] 1.020 Urine Protein 15 H Urine Glucose (UA) Normal Urine Ketones 50 H Urine Occult Blood Negative Urine Nitrite Negative Urine Bilirubin 1 H Urine Urobilinogen 1 H Ur Leukocyte Esterase Negative Urine RBC 0-5 SEEN Urine WBC 0-5 SEEN Ur Squamous Epith Cells 0 SEEN Ur Transition Epith Cell 0-5 SEEN Urine Bacteria 0 SEEN Hyaline Casts 0-5 SEEN Urine Mucus 1+ Assessment/Plan All Active Problems Decubitus ulcer of coccygeal region, stage 4 (Acute) Altered mental status (Acute) UTI (urinary tract infection) (Acute) Abdominal pain (Acute) Abnormal LFTs (Resolved) Hypertensive emergency without congestive heart failure (Resolved) Peptic ulcer with hemorrhage (Resolved) Sinus pause (Resolved) The patient is a 78 y/o F w/ PMHx: PUD, Dementia Unclear Type with no behavioral disturbance history, Severe Protein-Calorie Malnutrition, PAF on Eliquis, Hx Sick Sinus Syndrome, HTN, HLD, Chronic Hyponatremia, Valvular Heart Disease, Anxiety and Depression, Chronic Fe deficiency anemia, CAD without PCI from records review who presents to the [facility] ED on 06/30/18 with history of poor intake, failure to thrive per facility worsening over the last 48-72 hours w/ concurrently noted ongoing wound care for coccyx decubitous ulcer which family reported facility noting had been improving and well appearing prior but upon current presentation is foul smelling w/ obvious muscle necrosis upon evaluation with concern for > stage IV. (1) Hospice: Patient verified per HCPOA Son present to be DNR-CC. Reviewed patient code status and differences at length between DNR-CCA and DNR-CC. Requested continued DNR-CC. Discussed different options including evaluation per Hospice team in ED for possible transition to facility which he noted preferring. Will be evaluated in the ED and if felt appropriate transition to Hospice facility. Otherwise, would admit to [facility] for hospice treatment, MS, institute hospice comfort measures w/ VS limited q 12, sanderson placement if preference to patient and care, mouth care, regular diet or patient preference, oxygen as needed, PRN and scheduled SL morphine, scheduled lorazepam, haldol PRN IV, tylenol PRN. (2) Infected Decubitous Coccyx Ulcer, Suspect > Stage IV: In the ED work-up included T 97.9, heart rate 61, BP 107/75, respiratory rate 14, 98% on room air , CBC with WBC 26.6, hemoglobin 10.5, platelet 265 with left shift, BMP with potassium 3.2, BUN/creatinine 24/0.60, urinalysis with evidence dehydration with specific gravity 1.020 otherwise no evidence of acute infection, EKG with no acute evidence of ischemia. In the ED patient administered Zosyn in addition to normal saline with planned administration of vancomycin however following discussion with family, son who is healthcare power of admitted attorneys noting DNR CC with comfort only with request for evaluation per hospice services this antibiotic was held. If patient evaluation per Hospice does not yield transition to Hospice facility would plan admission to [facility] for comfort measures if appropriate. Additional Comorbidities: PAF: Maintained prior on eliquis and sotaolol, would plan hold given Hospice, comfort transition per HCPOA. Hypertension: Low BP in the ED, continued gentle hydration, would plan hold on regimen given Hospice, comfort transition per HCPOA. Hyperlipidemia: Hold home statin regimen. Chronic Hyponatremia: Na not marked elevated upon current presentation, prior records indicate routine Na mid 120-low 130 range, from prior reports secondary to excessive intake w/ fluid restrictions prior, current presentation w/ poor intake yielding elevated level. Severe Protein-Calorie Malnutrition: Evidenced per BMI, habitus, muscle and fat loss evidence very cachetic appearing. Hospice transition. Valvular Heart Disease: 2014 ECHO w/ EF 65%, stage I diastolic dysfunction, RVSP 31 mmHg with no changes from echo dated 2012; however, 2017 note per Cardiology commenting on ECHO w/ EF 70%, RVSP 26 mmHg and mild aortic insufficiency. Anxiety and Depression: Previous records indicate treatment w/ q HS low dose seroquel and currently remeron q HS. If anxious with current presentation given comfort transition, PRN SL ativan may be an option. CAD: From records no PCI, but unclear, would plan hold on regimen given Hospice , comfort transition per HCPOA. Chronic Fe Deficiency Anemia: Chronic anemia for several years, prior unremarkable endoscopies, has been maintained on eliquis but as noted stopping per discussion w/ HCPOA given Hospice transition. PUD: PPI if patient preference. DVT Prophylaxis: Defer given Hospice transition. CODE status: Discussed CODE status at length including difference between FULL code, DNR-CCA and DNR-CC status. Following discussions about the differences in these status, requested continued DNR-CC status with no interventions aside comfort measures. STEVEN is her son who was present and discussed these aspects at length. Advanced Care Planning Face to Face Time: 25 minutes. Code Visit Office Visits / Consults: [id number] IP Consult L5 - ED consultation actual CODE: [id number] Procedures: [id number] Advncd Care Plan 30 Min
--- NOTE | 2018-06-30 21:34 | ED.RN ---
PT POA (SON, ONDINA MARTINEZ) STATES THAT PT IS DNRCC AND DOES NOT WANT INVASIVE TREATMENT OF COCCYX DEBRIDEMENT IN THE OR. HOSPICE CARE WAS CALLED AND POA WAS INFORMED THAT IT WOULD BE APPROXIMATELY 2-3 HOURS BEFORE HOSPICE NURSE WOULD BE ABLE TO ARRIVE IN THE ED TO EVALUATE PT. PT WILL REMAIN IN ED UNTIL HOSPICE NURSE CAN ARRIVE TO DETERMINE IF PT MEETS CRITERIA FOR HOSPICE CARE CENTER OR POSSIBLE MEDICAL ADMISSION TO [facility] PENDING PLACEMENT TO ANOTHER CARE FACILITY. WILL CONTINUE TO MONITOR PT, FAMILY MEMBER LEFT ED FOR HOME, WILL KEEP HIM UPDATED WITH PHONE CALL.
[2018-06-30 23:19] VITALS: BP 108/56; PULSE 87; RESP 24; O2SAT 94
--- NOTE | 2018-07-01 00:14 | ED.DEP ---
ED Disposition - Plan for ED Patient: Disposition: Home or Assisted Living Chief Complaint: Weakness Instructions: ED Ulcer Decubitus Referrals: Agueda Colón DO [Primary Care Provider] -
[2018-07-01 00:33] VITALS: BP 102/51; PULSE 80; RESP 15; O2SAT 94
--- NOTE | 2018-07-01 00:35 | ED.RN ---
PER RAMBO DAVIS FROM [facility], NURSE TO NURSE REPORT DOES NOT NEED CALLED.
--- NOTE | 2018-07-02 08:55 | ED.RN ---
Attempt to call hospice and inform of blood culture results. Dr Adame determined no further treatment needed but to inform hospice. Called and staff out of office during weekend.
== END 2018-07-01 00:34 | disposition skilled nursing facility (03) ==
PROVIDERS: Emergency Provider Emergency Medicine; Family Provider Family Medicine; PCP Family Medicine
DX: L89.154 Pressure ulcer of sacral region, stage 4 (principal); E43 Unspecified severe protein-calorie malnutrition; Z68.1 Body mass index [BMI] 19.9 or less, adult; Z66 Do not resuscitate; N39.0 Urinary tract infection, site not specified; E87.1 Hypo-osmolality and hyponatremia; R62.7 Adult failure to thrive; I48.0 Paroxysmal atrial fibrillation; I25.10 Atherosclerotic heart disease of native coronary artery without angina pectoris; I49.5 Sick sinus syndrome; I45.10 Unspecified right bundle-branch block; I10 Essential (primary) hypertension; I05.9 Rheumatic mitral valve disease, unspecified; E78.5 Hyperlipidemia, unspecified; D50.9 Iron deficiency anemia, unspecified; F03.90 Unspecified dementia, unspecified severity, without behavioral disturbance, psychotic disturbance, mood disturbance, and anxiety; M16.10 Unilateral primary osteoarthritis, unspecified hip; G89.29 Other chronic pain; F32.9 Major depressive disorder, single episode, unspecified; F41.1 Generalized anxiety disorder; Z79.01 Long term (current) use of anticoagulants; Z79.82 Long term (current) use of aspirin; Z79.899 Other long term (current) drug therapy
CPT/HCPCS: 80048; 81001; 85025; 87040; 87070; 87075; 87076; 87077; 87186; 87205; 93005; 96365; 99285; J7030; J7050; A4216